=== PATIENT | male | born 1980 | race Caucasian/White ===

== ENCOUNTER 2018-01-08 17:56 | Inpatient (IN) | payer OTHER ==
[~2018-01-08] VITALS: Ht 175.3 cm; Wt 74.1 kg
--- OUTSIDE RECORDS SUMMARY | ~2018-01-08 | XMS | Clinical Summary ---
Demographics + + + | Address | [address] | | | [place] [address] | + + + | Home Phone | | + + + | Preferred Language | Unknown | + + + | Marital Status | Single | + + + | Mu-Ism Affiliation | Unknown | + + + | Race | Unknown | + + + | Ethnic Group | Unknown | + + + Author + + + | Author | [facility] | | | and [place] | + + + | Organization | [facility] | | | and [place] | + + + | Address | Unknown | + + + | Phone | Unavailable | + + + Care Team Providers + +------+ + | Care Felt Hat Inspector And Packer Name | Role | Phone | + +------+ + PP | Unavailable | + +------+ + Allergies Not on File Current Medications Not on file Active Problems Not on file Social History + +-------+ +--------+------+ | Tobacco Use | Types | Packs/Day | Years | Date | | | | | Used | | + +-------+ +--------+------+ | Never Assessed | | | | | + +-------+ +--------+------+ + + + | Sex Assigned at | Date Recorded | | | | + + + | Not on file | | + + + Plan of Treatment + + + + + | Health Maintenance | Due Date | Last Done | Comments | + + + + + | Vaccine: | | | | | Dtap/Tdap/Td (1 - | 1 | | | | Tdap) | | | | + + + + + | Vaccine: Influenza | | | | | (#1) | 8 | | | + + + + + Results Not on filefrom Last 3 Months"
--- OUTSIDE RECORDS SUMMARY | ~2018-01-08 | XMS | Clinical Summary ---
Demographics + + + | Address | [address] | | | [place] [address] | + + + | Home Phone | | + + + | Preferred Language | Unknown | + + + | Marital Status | Single | + + + | Synagogue Affiliation | CHR | + + + | Race | White | + + + | Ethnic Group | Not or | + + + Author + + + | Author | [facility] | + + + | Organization | [facility] | + + + | Address | Unknown | + + + | Phone | Unavailable | + + + Support + + + + + | Name | Relationship | Address | Phone | + + + + + | Rios Simmons | MILLY | [place] | | + + + + + | Magdalene Simmons | ECON | [place] | | + + + + + Care Team Providers + +------+ + | Care Inventory Control Specialist Name | Role | Phone | + +------+ + | Chace Matthews MD | PP | | + +------+ + Source Comments FABIAN is fully live on both [facility] and [facility] Allergies No Known Allergies Current Medications + + + +---------+------+------+-------+ | Prescription | Sig. | Disp. | Refills | Star | End | Statu | | | | | | t | Date | s | | | | | | Date | | | + + + +---------+------+------+-------+ | acetaminophen 325 | Take 1-2 Tabs by | | | 11/0 | | Activ | | mg Oral Tablet | mouth every four | | | 820 | | e | | | hours as needed. | | | 10 | | | + + + +---------+------+------+-------+ | aspirin EC 325 mg | Take 1 Tab by mouth | | | 11/0 | | Activ | | Oral Tablet, Delayed | once daily. | | | 12/02 | | e | | Release (E.C.) | | | | 10 | | | + + + +---------+------+------+-------+ | warfarin 5 mg Oral | Take 1 Tab by mouth | 60 Tab | 0 | 11/0 | | Activ | | Tablet | five times weekly | | | 01/02 | | e | | | (on Saturday, | | | 10 | | | | | Saturday, Saturday, | | | | | | | | Saturday and | | | | | | | | Saturday). Take 1.5 | | | | | | | | tabs on Saturday and | | | | | | | | . | | | | | | + + + +---------+------+------+-------+ | GABAPENTIN ORAL | Take 1 Tab by mouth. | | | | | Activ | | | | | | | | e | + + + +---------+------+------+-------+ | oxyCODONE, | Take 1 Tab by mouth | 60 Tab | 0 | 02/0 | | Activ | | immediate release, 5 | every six hours as | | | 7/20 | | e | | mg Oral Tablet | needed. 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 | + + + Social History + +-------+ +--------+------+ | Tobacco Use | Types | Packs/Day | Years | Date | | | | | Used | | + +-------+ +--------+------+ | Never Smoker | | | | | + +-------+ +--------+------+ + + +---------+ + | Alcohol Use | Drinks/We | oz/Week | Comments | | | ek | | | + + +---------+ + | Yes | | | "on weekends" | + + +---------+ + + + + | Sex Assigned at | Date Recorded | | | | + + + | Not on file | | + + + Last Filed Vital Signs + + + + | Vital Sign | Reading | Time Taken | + + + + | Blood Pressure | 135/87 | 05/23/2010 9:45 AM PST | + + + + | Pulse | 74 | 05/23/2010 9:45 AM PST | + + + + | Temperature | 37 C (98.6 F) | 05/23/2010 9:45 AM PST | + + + + | Respiratory Rate | 16 | 05/23/2010 10:00 AM PST | + + + + | Oxygen Saturation | 98% | 05/23/2010 10:00 AM PST | + + + + | Inhaled Oxygen | - | - | | Concentration | | | + + + + | Weight | 74.4 kg (164 lb) | 05/22/2010 2:42 PM PST | + + + + | Height | 175.3 cm (5' 9") | 05/22/2010 2:42 PM PST | + + + + | Body Mass Index | 24.22 | 05/22/2010 2:42 PM PST | + + + + Plan of Treatment + + + + + | Health Maintenance | Due Date | Last Done | Comments | + + + + + | INFLUENZA VACCINE | | | | | (FLU SHOT) | 8 | | | + + + + + Results Not on filefrom Last 3 Months Insurance + +--------+ +------+ + + | Payer | Benefi | Subscriber | Type | Phone | Address | | | t Plan | ID | | | | | | / | | | | | | | Group | | | | | + +--------+ +------+ + + | BLUE CROSS BLUE | REGENC | xxxxxxxxxxx | PPO | [phone] | [address] [address] [place] | | [place]IELD | E BCBS | x | | [phone] | [place], [place] | | | | | | | [phone] | + +--------+ +------+ + + + +--------+ +--------+ + + | Guarantor Name | Accoun | Relation to | Date | Phone | Billing Address | | | t Type | Patient | of | | | | | | | | | | + +--------+ +--------+ + + | CELINE SIMMONS | Person | Self [birth year] | Home: | [address] | | [place] | [place] | | 1981 | [phone] | [place] | | | [place] | | | [phone] | + +--------+ +--------+ + +
--- OUTSIDE RECORDS SUMMARY | ~2018-01-08 | XMS | Clinical Summary ---
Demographics + + + | Address | [address] | | | [place] [address] | + + + | Home Phone | | + + + | Preferred Language | Unknown | + + + | Marital Status | Single | + + + | Roman Catholic Affiliation | CHR | + + + | Race | White | + + + | Ethnic Group | Not or | + + + Author + + + | Author | [facility] | + + + | Organization | [facility] | + + + [...] Team Providers + +------+ + | Care Bicycle Courier Name | Role | Phone | + +------+ + | Chace Matthews MD | PP | | + +------+ + Source Comments FABIAN is fully live on both [facility] and [facility] Allergies No Known Allergies Current Medications [...] | PPO | [phone] | [address] [address] [place] | | SHIELD | E BCBS | x | | [phone] | [place], [place] | | | | | | | [phone] | + +--------+ +------+ + + + [...] [place] | [place] | | 1981 | [phone] | [place] | | | [place] | | | [phone] | + +--------+ +--------+ + +
--- OUTSIDE RECORDS SUMMARY | ~2018-01-08 | XMS | Clinical Summary ---
Demographics + + + | Address | [address] | | | [place] [address] | + + + | Home Phone | | + + + | Preferred Language | Unknown | + + + | Marital Status | Single | + + + | Spiritism Affiliation | Unknown | + + + | Race | Unknown | + + + | Ethnic Group | Unknown | + + + Author + + + | Author | [facility] | | | and [place] | + + + | Organization | [facility] | | | and [place] | + + + | Address | Unknown | + + + | Phone | Unavailable | + + + Care Team Providers + +------+ + | Care Warehouse General Laborer Name | Role | Phone | + [...]
--- OUTSIDE RECORDS SUMMARY | ~2018-01-08 | XMS | Clinical Summary ---
Demographics + + + | Address | [address] | | | [place] [address] | + + + | Home Phone | | + + + | Preferred Language | Unknown | + + + | Marital Status | Single | + + + | Buddhist Affiliation | Unknown | + + + | Race | Unknown | + + + | Ethnic Group | Unknown | + + + Author + + + | Author | [facility] | | | and [place] | + + + | Organization | [facility] | | | and [place] | + + + | Address | Unknown | + + + | Phone | Unavailable | + + + Care Team Providers + +------+ + | Care Alcohol Law Enforcement Agent Name | Role | Phone | + [...]
--- OUTSIDE RECORDS SUMMARY | ~2018-01-08 | XMS | Clinical Summary ---
Demographics + + + | Address | [address] | | | [place] [address] | + + + | Home Phone | | + + + | Preferred Language | Unknown | + + + | Marital Status | Single | + + + | Uatsdin Affiliation | CHR | + + + | Race | White | + + + | Ethnic Group | Not or | + + + Author + + + | Author | [facility] | + + + | Organization | [facility] | + + [...] Team Providers + +------+ + | Care Plow Mechanic Name | Role | Phone | + +------+ + | Chace Matthews MD | PP | | + +------+ + Source Comments FABIAN is fully live on both [facility] and [facility] InPatient.[facility] Allergies No Known Allergies Current Medications [...] | PPO | [phone] | [address] [address] [place] | | SHIELD | E BCBS | x | | [phone] | [place], [place] | | | | | | | [phone] | + +--------+ +------+ + + + [...] [place] | [place] | | 1981 | [phone] | [place] | | | [place] | | | [phone] | + +--------+ +--------+ + +
[2018-01-09] MEDS ORDERED: FENOFIBRATE145 MG PO (12:29)
[2018-01-09] MEDS ORDERED: BUSPIRONE HCL7.5 MG PO (12:29)
[2018-01-09] MEDS ORDERED: FISH OIL 1,0001 EAC3 PO (13:20)
[2018-01-09] MEDS ORDERED: ZANTAC150 MG PO (13:20)
[2018-01-10] MEDS ORDERED: IBUPROFEN600 MG PO (09:39)
[2018-01-10] MEDS ORDERED: MAPAP325 MG PO (09:39)
[2018-01-10] MEDS ORDERED: OXYCODON-ACETA1 EAC2 PO (09:39)
--- NOTE | 2018-01-11 13:08 | DS ---
[facility] [address] [place], [place] [address] Signed ADMISSION DATE: 01/08/2018 DISCHARGE DATE: 01/10/2018 REASON FOR ADMISSION: This 37-year-old white man is admitted with right lower abdominal pain, and emergency room evaluation showing CT scan evidence of significant appendicitis. PERTINENT PHYSICAL EXAMINATION: GENERAL: Pleasant white man accompanied by his with marked mucous membranes dehydration. CHEST: Clear. HEART: Regular without murmur. ABDOMEN: Nondistended and flat. Rovsing sign positive. Tenderness at McBurney point. HOSPITAL COURSE: He is given fluid resuscitation, broad-spectrum antibiotic Zosyn, and subsequently taken to operation where he underwent laparoscopic appendectomy. The appendix was somewhat retrocecal, markedly inflamed, purulent and not ruptured, or with abscess. Appendectomy was performed without complication. Postoperatively, he had much improvement. The following day, he was ambulating well, tolerating a regular diet, had incisional pain well controlled by medication. DISCHARGE MEDICATIONS: Will include: 1. Ibuprofen 600 mg p.o. q.6 hours p.r.n. pain #30. 2. Percocet 7.5/325 1-2 p.o. q.4 hours as needed for pain #10. 3. Tylenol 650 mg p.o. q.6 hours p.r.n. pain. He will continue with his usual medications including buspirone 7.5 mg b.i.d. (currently not taking). 4. Fenofibrate 145 mg tablet p.o. daily. 5. Zantac 150 mg p.o. daily. 6. Elberon-3 fatty acids. 7. Fish oil 1000 mg. 8. Soft gel cap one p.o. daily. DISCHARGE DIAGNOSES: 1. Acute suppurative nonperforated appendicitis, status post laparoscopic appendectomy. 2. Dyslipidemia. FOLLOWUP PLAN: He is to return to see me in approximately four weeks. He is restricted from lifting Electronically Signed By: KATHIE HURST MD 01/11/18 1308 PATIENT NAME: CELINE APARICIO DISCHARGE SUMMARY DATE OF : [birth year] REPORT #: [id number] PHYSICIAN: KATHIE HURST MD PCP: SWAPNIL BLUM DO REPORT IS CONFIDENTIAL AND NOT TO BE RELEASED WITHOUT AUTHORIZATION [address] [address] Signed more than 20 pounds for the next 2 weeks. He is permitted to shower tomorrow. We will keep Steri-Strips in place. MD JEFF Willard/ANTOLINL /[id number] cc: Dr. Stein. Swapnil Blum DO Copies: SWAPNIL BLUM DO ~ Electronically Signed By: KATHIE HURST MD 01/11/18 1308 PATIENT NAME: CELINE APARICIO DISCHARGE SUMMARY DATE OF : [birth year] REPORT #: [id number] PHYSICIAN: KATHIE HURST MD PCP: SWAPNIL BLUM DO REPORT IS CONFIDENTIAL AND NOT TO BE RELEASED WITHOUT AUTHORIZATION
--- NOTE | 2018-01-11 13:08 | HP ---
[facility] [place] [facility] [address] [place], [place] [address] Signed ADMISSION DATE: 01/08/2018 REASON FOR ADMISSION: Acute appendicitis. HISTORY: This 37-year-old white man at approximately 2:00 in the morning on the day of admission (late in the evening) was bothered by upper abdominal pain and feeling of nausea. This progressed during the day for which he thought he may have had "indigestion." He took several remedies including Mylanta and Tums and so forth, but this did not improve his symptoms much. The pain then progressed to the right lower abdomen where he was feeling particularly poorly. He was able to work at [email or web address], but upon returning home, was feeling bad enough that he presented to the emergency room where he is evaluated by Dr. Jair jack and found to have generalized abdominal tenderness most dominantly in the right lower quadrant. A CT scan was performed which confirmed high probability of appendicitis with a dilated thick-walled appendix and fecalith. He is admitted for further evaluation and care. The patient mostly feels quite thirsty. He has had no hematemesis or blood per rectum. Denies any back pain. 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 Past medical history also includes dyslipidemia for which he takes medication. SOCIAL HISTORY: He is . He has a very young son, works at [email or web address] as described. REVIEW OF SYSTEMS: He denies any shortness of breath or chest pain. He has had no dysphagia or dysuria. Denies any hematemesis or blood per rectum. PHYSICAL EXAMINATION: GENERAL: This is a pleasant white man who has a short cropped mcgill. He is accompanied by his and child and mother. HEENT: Mucous membranes are markedly dry. Trachea is midline. He has no hoarseness. CHEST: Clear. HEART: Regular without murmur. ABDOMEN: Nondistended and flat. Rovsing sign is positive. He has tenderness at McBurney point. He has no sign of ascites. Electronically Signed By: KATHIE HURST MD 01/11/18 1308 PATIENT NAME: CELINE APARICIO HISTORY AND PHYSICAL DATE OF : 82 REPORT #: [id number] PHYSICIAN: KATHIE HURST MD PCP: SWAPNIL BLUM DO REPORT IS CONFIDENTIAL AND NOT TO BE RELEASED WITHOUT AUTHORIZATION [facility] [address] [place], [place] [address] Signed EXTREMITIES: Show no clubbing, cyanosis, or edema. LABORATORY STUDIES: [place] [address]. Urinalysis is normal. Potassium slightly low at 3.3. I reviewed his CT scan in detail, the distended appendix is quite obvious that is directed to the midline in a somewhat retrocecal position, otherwise. Remaining abdomen is normal. ASSESSMENT: The patient has acute appendicitis without sign of perforation or abscess within 24 hours of its presentation. He is dehydrated. He needs additional fluids and ultimately I have recommended appendectomy performed by a laparoscopic approach. Discussed nonoperative methods which I believe are completely inappropriate in this situation. Risks of bleeding, infection, need for other indicated procedures, need for open procedure, and so forth was all reviewed in detail. He understands and wished to proceed as does his family. Given his dehydration, additional fluids will be given. Anticipating operation in the next 8 hours or so. MD JEFF Willard/TONI /[id number] cc: DO Swapnil Crowder DO Copies: BALAJI ROBERTS DO Electronically Signed By: KATHIE HURST MD 01/11/18 1308 PATIENT NAME: MARKUSCELINE RYAN HISTORY AND PHYSICAL DATE OF : 82 REPORT #: [id number] PHYSICIAN: KATHIE HURST MD PCP: SWAPNIL BLUM DO REPORT IS CONFIDENTIAL AND NOT TO BE RELEASED WITHOUT AUTHORIZATION [facility] [address] [place], [place] [address] Signed SWAPNIL BLUM DO ~ Electronically Signed By: KATHIE HURST MD 01/11/18 1308 PATIENT NAME: CELINE APARICIO HISTORY AND PHYSICAL DATE OF : 82 REPORT #: [id number] PHYSICIAN: KATHIE HURST MD PCP: SWAPNIL BLUM DO REPORT IS CONFIDENTIAL AND NOT TO BE RELEASED WITHOUT AUTHORIZATION
--- NOTE | 2018-01-11 13:08 | OR ---
[facility] [address] [place], [place] [address] Signed DATE OF OPERATION: 01/09/2018 SURGEON: Kathie Hurst MD PREOPERATIVE DIAGNOSIS: Acute appendicitis. POSTOPERATIVE DIAGNOSIS: Acute appendicitis. PROCEDURES PERFORMED: Laparoscopic appendectomy. ANESTHESIA: General endotracheal. Local 20 mL of 0.25% Marcaine with epinephrine. ANESTHESIOLOGIST: Magdalene Garcia CRNA. INDICATION OF PROCEDURE: This 37-year-old white man began having vague upper abdominal pain at 2 a.m., yesterday, which progressed throughout the day. He presented in the evening to the emergency room where he was found to have white count of 16,000, and a CT scan finding showing acute appendicitis. I admitted him at approximately 11:30 p.m., where he was noted to have tenderness at McBurney's point, but significant dehydration. He has been fluid resuscitated, given intravenous antibiotics, Zosyn, parental pain medication and so forth, and is now to undergo appendectomy prep by a laparoscopic approach. The risks of bleeding, infection, need for open procedure and other unforeseen complications was reviewed in detail. He understands, and wished to proceed. FINDINGS: Appendix was somewhat retrocecal in its position markedly inflamed without sign of perforation. There was a fibrinopurulent exudate attached to it. Appendectomy was performed without complication. The terminal ileum was normal. The gallbladder and liver appeared normal. There were no other findings of concern. DESCRIPTION OF PROCEDURE: The patient was brought to the operating room, given a general endotracheal anesthetic. Preoperative antibiotic Zosyn had been given. Sequential compression device stockings used and heparin subcutaneously administered. The abdomen was prepared with a Electronically Signed By: KATHIE HURST MD 01/11/18 1308 PATIENT NAME: CELINE APARICIO OPERATIVE REPORT DATE OF : [birth year] REPORT #: [id number] PHYSICIAN: KATHIE HURST MD PCP: AISLINN BLUM DO REPORT IS CONFIDENTIAL AND NOT TO BE RELEASED WITHOUT AUTHORIZATION [facility] [address] [place], [place] [address] Signed chlorhexidine solution after clipping. A Marrero catheter was not required. He had voided just prior to entry to the operating room. After sterile draping, an infraumbilical incision was made, and using open Venancio cannula technique, pneumoperitoneum was achieved to a level of 14 mmHg of carbon dioxide gas. Intra-abdominal inspection showed no sign of ascites or carcinomatosis. The appendix was not visualized, the cecum was. The liver and other intra-abdominal organs appeared grossly normal. An epigastric 12 mm port was placed and a camera placed at that site. Single hand manipulation of the cecum still did not reveal the location of the appendix. On that basis, right lower quadrant 5 mm port was placed and with two hand manipulation, the cecum could be rolled toward the midline. Table was put [id number] as well. The appendix appeared to be markedly inflamed and matted to the retroperitoneum, and extending toward the midline. Once the appendix could be defined. It was clear that the right lower quadrant port was not advantageous and therefore, a supraumbilical port was placed under direct visualization allowing for better manipulation of the appendix. The appendix was gently dissected free from its retroperitoneal position and ultimately the mesoappendix better defined. A small amount of cautery was used to minimize the fat with the mesoappendix, and once the plane well developed an Endo-CELESTINO stapling device was used to transect the mesoappendix. Good hemostasis was noted along the cautery line. An additional load was required for the most proximal mesoappendix. By this point, the appendix was well skeletonized, and the base of the cecum could be well seen. Using an Endo-CELESTINO with a GI load, the base of the appendix and cecum were transected with good closure result. The appendix was placed in an endobag and extracted through the infraumbilical port and passed for permanent pathology. Irrigation was undertaken showing good hemostasis. One small area of bleeding was secured with cautery. Excess irrigation fluid was suctioned free as was the fluid that was over the dome of the liver. The trocars were removed under direct visualization showing no sign of bleeding. The infraumbilical fascial incision was reapproximated with interrupted 0 Vicryl suture. All wounds were copiously irrigated with saline solution and injected with 0.25% Marcaine with epinephrine for postoperative analgesic benefit. The infraumbilical fascial incision was reapproximated with interrupted 0 Vicryl suture. The skin was closed with interrupted 3-0 Vicryl, and Steri-Strips were applied. The patient was ultimately extubated and transferred to recovery room in good condition having suffered no complication. BLOOD LOSS: Minimal. Electronically Signed By: KATHIE HURST MD 01/11/18 1308 PATIENT NAME: CELINE APARICIO OPERATIVE REPORT DATE OF : 82 REPORT #: [id number] PHYSICIAN: KATHIE HURST MD PCP: AISLINN BLUM DO REPORT IS CONFIDENTIAL AND NOT TO BE RELEASED WITHOUT AUTHORIZATION [address] [address] Signed MD JEFF Willard/MODL /[id number] cc: DO Liz Cardenas DO Copies: AISLINN BLUM KATHLEEN DO ~ Electronically Signed By: KATHIE HURST MD 01/11/18 1308 PATIENT NAME: CELINE APARICIO OPERATIVE REPORT DATE OF : 82 REPORT #: [id number] PHYSICIAN: KATHIE HURST MD PCP: AISLINN BLUM DO REPORT IS CONFIDENTIAL AND NOT TO BE RELEASED WITHOUT AUTHORIZATION
== END 2018-01-10 10:25 | disposition home or self-care (01) | DRG 343 ==
LOC: ED 17:56 → MS 21:51
PROVIDERS: ADMIT Surgery
PROC: 0DTJ4ZZ Resection of Appendix, Percutaneous Endoscopic Approach (ICD-10-PCS; principal; 2018-01-09 08:15)
DX: K35.80 Unspecified acute appendicitis (principal); K38.1 Appendicular concretions; E86.0 Dehydration; E78.5 Hyperlipidemia, unspecified; Z86.718 Personal history of other venous thrombosis and embolism
CPT/HCPCS: 00840; 74177; 80053; 81001; 83690; 85025; 96361; 96374; 96375; 96376; 99285; J0330; J1100; J1170; J1644; J1885; J2270; J2405; J2543; J2704; J3010; J7030; J7120; Q9967

== ENCOUNTER 2020-04-02 03:10 | Emergency (ER) | payer OTHER ==
[~2020-04-02] VITALS: Ht 175.3 cm; Wt 74.8 kg
[~2020-04-02 03:10] MED LIST: BUSPIRONE HCL7.5 MG PO; FENOFIBRATE145 MG PO; FISH OIL 1,0001 EAC3 PO; IBUPROFEN600 MG PO; MAPAP325 MG PO; OXYCODON-ACETA1 EAC2 PO; ZANTAC150 MG PO
--- NOTE | 2020-04-02 21:37 | EKG ---
[facility] [address] [facility] [place] [address] Signed Normal sinus rhythm Normal ECG When compared with ECG of 02-APR-2020 03:14, (Unconfirmed) T wave inversion no longer evident in Anterolateral leads Confirmed by RICHARD ROMANO MD ([id number]) on 04/02/2020 9:37:29 PM Electronically Signed By: RICHARD ROMANO MD 04/02/20 2137 PATIENT NAME: CELINE APARICIO Electrocardiogram DATE OF : 82 PHYSICIAN: RICHARD ROMANO MD REPORT #: [id number] REPORT IS CONFIDENTIAL AND NOT TO BE RELEASED WITHOUT AUTHORIZATION
--- NOTE | 2020-04-02 21:37 | EKG ---
[facility] [address] [facility] [place] [address] Signed Sinus tachycardia T wave abnormality, consider lateral ischemia Abnormal ECG No previous ECGs available Confirmed by RICHARD ROMANO MD ([id number]) on 04/02/2020 9:37:03 PM Electronically Signed By: RICHARD ROMANO MD 04/02/20 2137 PATIENT NAME: CELINE APARICIO [place] Electrocardiogram DATE OF : 82 PHYSICIAN: RICHARD ROMANO MD REPORT #: [id number] REPORT IS CONFIDENTIAL AND NOT TO BE RELEASED WITHOUT AUTHORIZATION
== END 2020-04-02 06:56 | disposition home or self-care (01) ==
LOC: ED 03:10
DX: R07.9 Chest pain, unspecified (principal); E78.1 Pure hyperglyceridemia
CPT/HCPCS: 71045; 80053; 83735; 84484; 85025; 85379; 93005; 93010; 96374; 96375; 99285-25; J2270; J2405